=== PATIENT | female | born 1995 | race Hispanic/Latino ===

== ENCOUNTER 2019-09-22 08:08 | Emergency (ER) | payer OTHER, SELFPAY ==
--- NOTE | 2019-09-22 09:13 | ER ---
Nurse's Notes [facility] Name: Leora Morin Age: 24 yrs Sex: Female : 1995 Arrival Date: 09/22/2019 Time: 08:11 Bed 13 Private MD: Diagnosis: Acute pharyngitis Presentation: 09/21 08:15 Chief complaint: Patient states: sore throat and cough x 5 days ago. Pt denies SOB, aa5 denies fever. Pt states "my whole family has been tested for COVID and they are all negative". 08:15 Coronavirus screen: Patient reports a cough. Patient denies shortness of breath or aa5 difficulty breathing. Patient denies measured and/or subjective temperature greater than 100.4F prior to today's visit. Patient denies travel on a cruise ship or to a country the [facility] currently lists as an affected area. Patient denies contact with known and/or suspected case of COVID-19. Ebola Screen: Patient negative for fever greater than or equal to 101.5 degrees Fahrenheit, and additional compatible Ebola Virus Disease symptoms. Initial Sepsis Screen: Does the patient meet any 2 criteria? No. Patient's initial sepsis screen is negative. Does the patient have a suspected source of infection? No. Patient's initial sepsis screen is negative. Risk Assessment: Do you want to hurt yourself or someone else? Patient reports no desire to harm self or others. Onset of symptoms was August 2019. 08:15 Acuity: SIERRA 4 aa5 08:15 Method Of Arrival: Ambulatory aa5 CORRESPONDENT: 08:33 LMP N/A - control method aa5 Historical: - Allergies: 08:15 No Known Allergies; aa5 - PMHx: 08:15 Asthma; aa5 - PSHx: 08:15 ; aa5 - Immunization history:: Adult Immunizations unknown. - Social history:: Smoking status: Patient denies any tobacco usage or history of. Screenin:20 Abuse screen: Denies threats or abuse. Nutritional screening: No deficits noted. aa5 Tuberculosis screening: No symptoms or risk factors identified. Fall Risk None identified. Assessment: 08:15 General: Appears comfortable, Behavior is calm, cooperative. Pain: Complains of pain in aa5 throat. Neuro: Level of Consciousness is awake, alert, obeys commands, Oriented to person, place, time, situation. Cardiovascular: Heart tones S1 S2 present Rhythm is regular. Respiratory: Reports cough that is Airway is patent Respiratory effort is even, unlabored, Respiratory pattern is regular, symmetrical, Breath sounds are clear bilaterally. Denies shortness of breath. GI: Patient currently denies diarrhea, nausea, vomiting. : No signs and/or symptoms were reported regarding the genitourinary system. EENT: Throat is reddened with gag reflex present, Reports nasal congestion. Derm: Skin is pink, warm \\T\\ dry. Musculoskeletal: Range of motion: intact in all extremities. 09:07 Reassessment: Patient appears in no apparent distress at this time. Patient and/or hb family updated on plan of care and expected duration. Pain level reassessed. Patient is alert, oriented x 3, equal unlabored respirations, skin warm/dry/pink. Vital Signs: 08:15 BP 151 / 110; Pulse 90; Resp 18 S; Temp 98.4(O); Pulse Ox 100% on R/A; Weight 83.91 kg aa5 (R); Height 4 ft. 8 in. (142.24 cm) (R); Pain 5/10; 09:00 BP 137 / 87; Pulse 74; Resp 16; Pulse Ox 100% on R/A; hb 08:15 Body Mass Index 41.48 (83.91 kg, 142.24 cm) aa5 ED Course: 08:11 Patient arrived in ED. as 08:15 Arm band placed on Patient placed in an exam room, on a stretcher. aa5 08:15 Patient has correct armband on for positive identification. Bed in low position. Call aa5 light in reach. Side rails up X2. 08:19 Suresh Cartwirght NP is PHCP. pm1 08:19 Jose Bustos MD is Attending Physician. pm1 08:27 Flu and/or RSV swab sent to lab. Strep swab sent to lab. aa5 08:29 Rossy Melo, DOV is Primary Nurse. aa5 08:31 Triage completed. aa5 09:25 No provider procedures requiring assistance completed. Patient did not have IV access hb during this emergency room visit. Administered Medications: No medications were administered Outcome: 09:12 Discharge ordered by . pm1 09:25 Discharged to home ambulatory. hb 09:25 Condition: stable 09:25 Discharge instructions given to patient, Instructed on discharge instructions, follow up and referral plans. medication usage, Demonstrated understanding of instructions, follow-up care, medications, Prescriptions given X 1. 09:26 Patient left the ED. hb Signatures: Phyllis Thornton Audri, RN RN aa5 Suresh Cartwright, KARL STATISTICAL FINANCIAL ANALYST pm1 Lexy Walter RN RN hb Corrections: (The following items were deleted from the chart) 08:32 08:15 Chief complaint: Patient states: sore throat and cough x 5 days ago. Pt denies aa5 SOB, denies fever. aa5
--- NOTE | 2019-09-22 09:13 | EDPHYS ---
Physician Documentation [facility] Name: Leora Morin Age: 24 yrs Sex: Female : 1995 Arrival Date: 09/22/2019 Time: 08:11 Bed 13 Private MD: ED Physician Jose Bustos HPI: 09/21 08:49 This 24 yrs old Female presents to ER via Ambulatory with complaints of Sore pm1 Throat. 08:49 The patient presents with sore throat. The patient describes throat pain as raw, pm1 scratchy. 08:49 Onset: The symptoms/episode began/occurred 5 day(s) ago. Severity of symptoms: in the pm1 emergency department the symptoms are actually worse. Modifying factors: The symptoms are alleviated by nothing, the symptoms are aggravated by nothing, Denies contact with similarly ill indivduals. Associated signs and symptoms: Pertinent positives: cough, Pertinent negatives chest pain, diarrhea, fever, shortness of breath, vomiting. The patient has not recently seen a physician. Patient denies any exposure to covid and her family member that she lives with have tested multiple times and have been negative. 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 - Social history:: Smoking status: Patient denies any tobacco usage or history of. ROS: 08:55 Constitutional: Negative for fever, chills, and weight loss, Eyes: Negative for injury, pm1 pain, redness, and discharge. 08:55 Neck: Negative for injury, pain, and swelling, Cardiovascular: Negative for chest pain, palpitations, and edema. 08:55 Abdomen/GI: Negative for abdominal pain, nausea, vomiting, diarrhea, and constipation, Back: Negative for injury and pain, MS/Extremity: Negative for injury and deformity, Skin: Negative for injury, rash, and discoloration, Neuro: Negative for headache, weakness, numbness, tingling, and seizure. 08:55 ENT: Positive for sore throat, Negative for ear pain, difficulty swallowing, difficulty handling secretions, hoarseness. 08:55 Respiratory: Positive for cough, Negative for shortness of breath, sputum production, wheezing. Exam: 08:55 Constitutional: This is a well developed, well nourished patient who is awake, alert, pm1 and in no acute distress. Head/Face: Normocephalic, atraumatic. 08:55 Back: No spinal tenderness. No costovertebral tenderness. Full range of motion. Skin: Warm, dry with normal turgor. Normal color with no rashes, no lesions, and no evidence of cellulitis. MS/ Extremity: Pulses equal, no cyanosis. Neurovascular intact. Full, normal range of motion. 08:55 Cardiovascular: Exam negative for acute changes, Rate: normal, Rhythm: regular, Pulses: no pulse deficits are appreciated. 08:55 Respiratory: Exam negative for acute changes, respiratory distress, shortness of breath. 08:55 Neuro: Exam negative for acute changes, Orientation: is normal, Mentation: is normal, Motor: is normal, moves all fours. 08:55 Neck: Trachea midline, no thyromegaly or masses palpated, and no cervical pm1 lymphadenopathy. Supple, full range of motion without nuchal rigidity, or vertebral point tenderness. No Meningismus. 08:55 ENT: External ear(s): are unremarkable, Ear canal(s): are normal, TM's: are normal, Posterior pharynx: Tonsils: bilaterally enlarged, with erythema, no exudate, no ulcerations, peritonsillar mass, is not appreciated. Vital Signs: 08:15 BP 151 / 110; Pulse 90; Resp 18 S; Temp 98.4(O); Pulse Ox 100% on R/A; Weight 83.91 kg aa5 (R); Height 4 ft. 8 in. (142.24 cm) (R); Pain 5/10; 09:00 BP 137 / 87; Pulse 74; Resp 16; Pulse Ox 100% on R/A; hb 08:15 Body Mass Index 41.48 (83.91 kg, 142.24 cm) aa5 MDM: 08:20 Patient medically screened. pm1 08:52 Data reviewed: vital signs. Data interpreted: Pulse oximetry: on room air is 100 %. pm1 Interpretation: normal. 08:52 ED course: Patient offered covid test and she does not want it because the people that pm1 she lives with have tested for covid multiple times and are negative. 09:12 Counseling: I had a detailed discussion with the patient and/or guardian regarding: the pm1 historical points, exam findings, and any diagnostic results supporting the discharge/admit diagnosis, lab results, the need for outpatient follow up, to return to the emergency department if symptoms worsen or persist or if there are any questions or concerns that arise at home. 09/21 08:25 Order name: Strep; Complete Time: 09:11 pm1 09/21 08:25 Order name: Flu; Complete Time: 09:11 pm1 09/21 09:10 Order name: Throat Culture EDMN Administered Medications: No medications were administered Disposition: 09/22 05:29 Co-signature as Attending Physician, Jose Bustos MD I agree with the assessment and dheeraj plan of care. Disposition: 09/22/19 09:12 Discharged to Home. Impression: Acute pharyngitis. - Condition is Stable. - Discharge Instructions: Pharyngitis. - Prescriptions for Tessalon Perles 100 mg Oral Capsule - take 1 capsule by ORAL route every 8 hours As needed; 15 capsule. - Medication Reconciliation Form, Thank You Letter, Antibiotic Education, Prescription Opioid Use form. - Follow up: Emergency Department; When: As needed; Reason: Worsening of condition. Follow up: Private Physician; When: 2 - 3 days; Reason: Recheck today's complaints, Continuance of care, Re-evaluation by your physician. - Problem is new. - Symptoms have improved. Signatures: Dispatcher [employer] EDMS Jose Bustos MD MD cha Calderon, Audri, RN RN aa5 Suresh Cartwright NP WEDDING DESIGNER pm1 Lexy Walter RN RN hb Corrections: (The following items were deleted from the chart) 09/21 09: 09:12 09/22/2019 09:12 Discharged to Home. Impression: Acute pharyngitis. Condition is hb Stable. Forms are Medication Reconciliation Form, Thank You Letter, Antibiotic Education, Prescription Opioid Use. Follow up: Emergency Department; When: As needed; Reason: Worsening of condition. Follow up: Private Physician; When: 2 - 3 days; Reason: Recheck today's complaints, Continuance of care, Re-evaluation by your physician. Problem is new. Symptoms have improved. pm1
[2019-09-22 09:35] VITALS: TEMP 98.4; O2SAT 100
[2019-09-22 09:40] VITALS: BP 137/87
== END 2019-09-22 09:26 | disposition home or self-care (01) ==
LOC: ER 08:08
DX: J02.9 Acute pharyngitis, unspecified (principal)
CPT/HCPCS: 87070; 87081; 87804; 99283

== ENCOUNTER 2020-03-01 22:27 | Emergency (ER) | payer SELFPAY ==
--- OUTSIDE RECORDS SUMMARY | 2020-03-01 22:29 | XMS REPORT | Continuity of Care Document ---
:1995 Author Organization [facility] t Address [address] [place] [address] [place] [id number] Care Team Providers Name Role Phone Unavailable Unavailable Unavailable Problems This patient has no known problems. Allergies, Adverse Reactions, Alerts This patient has no known allergies or adverse reactions. Medications This patient has no known medications. Procedures This patient has no known procedures. Results This patient has no known results.
[2020-03-02 00:08] LABS: Absolute Lymphocytes (CBC) 2.4 K/uL (0.7-4.9); Basophils % 0.5 % (0-1.3); Hematocrit 40.1 % (36.0-45.0); Lymphocytes % 30.9 % (15.3-44.8); MPV 8.1 fL (7.6-11.3); RBC Red Blood Cell Count 4.54 M/uL (3.86-4.86)
[2020-03-02 00:10] LABS: Protime INR 1.03
[2020-03-02 00:26] LABS: ALT/SGPT 47 U/L (12-78); AST/SGOT 21 U/L (15-37); Albumin 4.1 g/dL (3.4-5.0); Alkaline Phosphatase 109 U/L (45-117); BUN Blood Urea Nitrogen 9 mg/dL (7-18); Bicarbonate 29 mmol/L (21-32); Bilirubin Direct < 0.1 mg/dL (0-0.2); Bilirubin Total 0.2 mg/dL (0.2-1.0); Glucose Level 103 mg/dL (74-106); Magnesium 2.6 mg/dL (1.8-2.4); Potassium 3.8 mmol/L (3.5-5.1); Protein, Total 8.4 g/dL (6.4-8.2); Sodium Level 139 mmol/L (136-145); Troponin (Emerg Dept Use Only) < 0.02 ng/mL (0.0-0.045)
[2020-03-02] MEDS ORDERED: KETOROLAC 30 MG/ML INJ ONE (00:28)
[2020-03-02 00:44] LABS: Barbiturates NEGATIVE (NEGATIVE); Benzodiazepines NEGATIVE (NEGATIVE); Cocaine NEGATIVE (NEGATIVE); METHAMPHETAM NEGATIVE (NEGATIVE); Methadone NEGATIVE (NEGATIVE); Opiates NEGATIVE (NEGATIVE); Phencyclidine NEGATIVE (NEGATIVE); THC Cannibis NEGATIVE (NEGATIVE)
--- NOTE | 2020-03-02 01:01 | EDPHYS ---
Physician Documentation [facility] Name: Leora Morin Age: 25 yrs Sex: Female : 1995 Arrival Date: 03/01/2020 Time: 22:29 Bed 5 Private MD: ED Physician Jonathon Meza HPI: 03/01 23:56 This 25 yrs old Female presents to ER via Ambulatory with complaints of Chest cp Pain. 23:56 The patient or guardian reports chest pain that is located primarily in the anterior cp chest wall, left. 23:56 The pain does not radiate. 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 - Social history:: Smoking status: Patient denies any tobacco usage or history of. ROS: 23:59 Constitutional: Negative for body aches, chills, fever, poor PO intake. cp 23:59 Cardiovascular: Positive for chest pain, Negative for edema, palpitations. cp Exam: 23:45 ECG was reviewed by the Attending Physician. cp 03/02 00:05 Constitutional: The patient appears in no acute distress, alert, awake, cp non-diaphoretic, non-toxic, well developed, well nourished, obese. 00:05 Head/Face: Normocephalic, atraumatic. cp 00:05 Eyes: Periorbital structures: appear normal, Conjunctiva: normal, no exudate, no injection, Sclera: no appreciated abnormality, Lids and lashes: appear normal, bilaterally. 00:05 ENT: External ear(s): are unremarkable, Nose: is normal, Mouth: Lips: moist, Oral mucosa: moist, Posterior pharynx: Airway: no evidence of obstruction, patent. 00:05 Chest/axilla: Inspection: normal, Palpation: crepitus, is not appreciated, tenderness, that is moderate, of the anterior aspect of left upper chest, that partially reproduces the patient's complaints. 00:05 Cardiovascular: Rate: normal, Rhythm: regular, Edema: is not appreciated, JVD: is not appreciated. 00:05 Respiratory: the patient does not display signs of respiratory distress, Respirations: normal, no use of accessory muscles, no retractions, labored breathing, is not present, Breath sounds: are clear throughout, no decreased breath sounds, no stridor, no wheezing. 00:05 Abdomen/GI: Inspection: abdomen appears normal, Palpation: abdomen is soft and non-tender, in all quadrants. 00:05 Neuro: Orientation: to person, place \T\ time. Mentation: is normal. Vital Signs: 03/01 23:02 BP 128 / 88; Pulse 91; Resp 18; Temp 98.3(O); Pulse Ox 100% on R/A; Weight 88.45 kg lp1 (R); Height 4 ft. 8 in. (142.24 cm); Pain 5/10; 03/02 01:00 BP 133 / 70; Pulse 85; Resp 19; Pulse Ox 99% ; Pain 5/10; rr5 01:25 BP 126 / 85; Pulse 90; Resp 17; Pulse Ox 99% ; rr5 03/01 23:02 Body Mass Index 43.72 (88.45 kg, 142.24 cm) lp1 MDM: 03/01 23:55 Patient medically screened. cp 03/02 00:00 Differential diagnosis: abnormal EKG, acute myocardial infarction, acute pericarditis, cp anxiety, chest wall pain, cholecystitis, Cholelithiasis costochondritis, esophagitis, pericarditis, pleurisy, pneumonia, pneumothorax, pulmonary embolus. 01:00 Data reviewed: vital signs, nurses notes, lab test result(s), EKG, radiologic studies, cp plain films. 01:00 Test interpretation: by ED physician or midlevel provider: ECG, chest xray negative for cp infiltrates. Counseling: I had a detailed discussion with the patient and/or guardian regarding: the historical points, exam findings, and any diagnostic results supporting the discharge/admit diagnosis, lab results, radiology results, the need for outpatient follow up, a family practitioner, to return to the emergency department if symptoms worsen or persist or if there are any questions or concerns that arise at home. Response to treatment: the patient's symptoms have mildly improved after treatment, and as a result, I will discharge patient. Special discussion: Based on the patient's history, exam, and Dx evaluation, there is no indication for emergent intervention or inpatient Tx. It is understood by the patient/guardian that if the Sx's persist or worsen they need to return immediately for re-evaluation. 03/01 23:48 Order name: Basic Metabolic Panel; Complete Time: 00:52 cp 03/01 23:48 Order name: CBC with Diff; Complete Time: 00:52 cp 03/02 00:52 Interpretation: Normal except: EOSINOPHIL % 7.7. cp 03/01 23:48 Order name: LFT's; Complete Time: 00:52 cp 03/02 00:52 Interpretation: Normal except: TP 8.4; GLOB 4.3; A/G 1.0. cp 03/01 23:48 Order name: Magnesium; Complete Time: 00:52 cp 03/01 23:48 Order name: PT-INR; Complete Time: 00:52 cp 03/01 23:48 Order name: Troponin (emerg Dept Use Only); Complete Time: 00:52 cp 03/02 00:55 Interpretation: Reviewed. cp 03/01 23:48 Order name: XRAY Chest (1 view) cp 03/01 23:48 Order name: EKG; Complete Time: 23:51 cp 03/01 23:48 Order name: Cardiac monitoring; Complete Time: 00:07 cp 03/01 23:48 Order name: UDS; Complete Time: 00:52 cp 03/02 00:55 Interpretation: Reviewed. cp 03/01 23:48 Order name: D-Dimer; Complete Time: 00:52 cp 03/02 00:14 Order name: Urine Dipstick--Ancillary (enter results) mw2 03/01 23:48 Order name: EKG - Nurse/Tech; Complete Time: 00:08 cp 03/01 23:48 Order name: IV Saline Lock; Complete Time: 00:08 cp 03/01 23:48 Order name: Labs collected and sent; Complete Time: 00:08 cp 03/01 23:48 Order name: O2 Per Protocol; Complete Time: 00:08 cp 03/01 23:48 Order name: O2 Sat Monitoring; Complete Time: 00:08 cp 03/01 23:48 Order name: Urine Dipstick-Ancillary (obtain specimen); Complete Time: 00:16 cp 03/01 23:48 Order name: Urine Test (obtain specimen); Complete Time: 00:16 cp EC/03 23:45 Rate is 89 beats/min. Rhythm is regular. NH interval is normal. QRS interval is normal. cp QT interval is normal. T waves are Inverted in lead aVR. Interpreted by me. Reviewed by me. Administered Medications: 03/02 00:07 Drug: TORadol - Ketorolac 15 mg Route: IVP; Site: left antecubital; mg2 01:00 Follow up: Response: No adverse reaction; Pain is decreased rr5 01:08 Drug: Ativan 0.5 mg Route: IVP; Site: left antecubital; rr5 01:25 Follow up: Response: No adverse reaction; Marked relief of symptoms rr5 Disposition: 01:30 Chart complete. cp 06:49 Co-signature as Attending Physician, Jonathon Meza MD I agree with the assessment and tw4 plan of care. Disposition: 03/02/20 01:00 Discharged to Home. Impression: Other chest pain. - Condition is Stable. - Discharge Instructions: Nonspecific Chest Pain. - Prescriptions for Diclofenac Sodium 75 mg Oral Tablet Sustained Release - take 1 tablet by ORAL route 2 times per day; 30 tablet. - Medication Reconciliation Form, Thank You Letter, Antibiotic Education, Prescription Opioid Use form. - Follow up: Private Physician; When: 2 - 3 days; Reason: Recheck today's complaints. - Problem is new. - Symptoms have improved. Signatures: Dispatcher [employer] EDMS Sravanthi Toure RN RN lp1 Jose Conte PA PA cp Wadley, Terrence, MD MD tw4 Perfecto Sullivan RN RN mg2 Naman Bray RN RN rr5 Corrections: (The following items were deleted from the chart) 01:28 01:00 03/02/2020 01:00 Discharged to Home. Impression: Other chest pain. Condition is rr5 Stable. Discharge Instructions: Nonspecific Chest Pain. Prescriptions for Diclofenac Sodium 75 mg Oral Tablet Sustained Release - take 1 tablet by ORAL route 2 times per day; 30 tablet. and Forms are Medication Reconciliation Form, Thank You Letter, Antibiotic Education, Prescription Opioid Use. Follow up: Private Physician; When: 2 - 3 days; Reason: Recheck today's complaints. Problem is new. Symptoms have improved. cp
--- NOTE | 2020-03-02 01:01 | ER ---
Nurse's Notes [facility] Name: Leora Morin Age: 25 yrs Sex: Female : 1995 Arrival Date: 03/01/2020 Time: 22:29 Bed 5 Private MD: Diagnosis: Other chest pain Presentation: 03/01 22:59 Chief complaint: Patient states: chest pain for "a couple months" with shortness of lp1 breath; states "I just couldn't take it anymore";. Coronavirus screen: Client denies travel out of the [place] in the last 14 days. shortness of breath, Client presents with at least one sign or symptom that may indicate coronavirus-19. Standard/surgical mask placed on the client. Ebola Screen: No symptoms or risks identified at this time. Risk Assessment: Do you want to hurt yourself or someone else? Patient reports no desire to harm self or others. Onset of symptoms was March 01, 2020. 22:59 Method Of Arrival: Ambulatory lp1 22:59 Acuity: SIERRA 3 lp1 23:02 Initial Sepsis Screen: Does the patient meet any 2 criteria? No. Patient's initial lp1 sepsis screen is negative. Does the patient have a suspected source of infection? No. Patient's initial sepsis screen is negative. Triage Assessment: 23:40 General: Appears in no apparent distress. uncomfortable, Behavior is calm, cooperative, rr5 appropriate for age. 23:40 Pain: Complains of pain in anterior aspect of left upper chest. 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 - Social history:: Smoking status: Patient denies any tobacco usage or history of. Screenin:06 Abuse screen: Denies threats or abuse. Denies injuries from another. Nutritional lp1 screening: No deficits noted. Tuberculosis screening: No symptoms or risk factors identified. Fall Risk None identified. Assessment: 23:40 General: Appears in no apparent distress. uncomfortable, Behavior is calm, cooperative, rr5 appropriate for age. 23:40 Pain: Complains of pain in chest and anterior aspect of left upper chest Pain does not rr5 radiate. Pain currently is 8 out of 10 on a pain scale. Quality of pain is described as aching, Pain began gradually, Is intermittent. Neuro: Level of Consciousness is awake, alert, obeys commands, Oriented to person, place, time, situation. Cardiovascular: Reports chest pain, Capillary refill < 3 seconds Patient's skin is warm and dry. Respiratory: Airway is patent Respiratory effort is even, unlabored, Respiratory pattern is regular, symmetrical. GI: No signs and/or symptoms were reported involving the gastrointestinal system. : No signs and/or symptoms were reported regarding the genitourinary system. EENT: No signs and/or symptoms were reported regarding the EENT system. Derm: Skin is intact, is healthy with good turgor, Skin temperature is warm. Musculoskeletal: Circulation, motion, and sensation intact. Capillary refill < 3 seconds. 03/02 01:06 Reassessment: Patient appears in no apparent distress at this time. Patient is alert, rr5 oriented x 3, equal unlabored respirations, skin warm/dry/pink. for discharge with additional order made Patient states symptoms have improved. 01:25 Reassessment: Patient appears in no apparent distress at this time. Patient is alert, rr5 oriented x 3, equal unlabored respirations, skin warm/dry/pink. discharge instruction given and explained without complaints made Patient states feeling better. Patient states symptoms have improved. Vital Signs: 03/01 23:02 BP 128 / 88; Pulse 91; Resp 18; Temp 98.3(O); Pulse Ox 100% on R/A; Weight 88.45 kg lp1 (R); Height 4 ft. 8 in. (142.24 cm); Pain 5/10; 03/02 01:00 BP 133 / 70; Pulse 85; Resp 19; Pulse Ox 99% ; Pain 5/10; rr5 01:25 BP 126 / 85; Pulse 90; Resp 17; Pulse Ox 99% ; rr5 03/01 23:02 Body Mass Index 43.72 (88.45 kg, 142.24 cm) lp1 ED Course: 03/01 22:29 Patient arrived in ED. ag3 23:01 Triage completed. lp1 23:01 Arm band placed on right wrist. lp1 23:33 Perfecto Sullivan, RN is Primary Nurse. mg2 23:40 Patient has correct armband on for positive identification. Placed in gown. Bed in low rr5 position. Call light in reach. alarm security or surveillance monitor on. Pulse ox on. NIBP on. 23:40 No provider procedures requiring assistance completed. rr5 23:40 Inserted saline lock: 20 gauge in left antecubital area, using aseptic technique. Blood rr5 collected. Patient maintains SpO2 saturation greater than 95% on room air. 23:41 Jose Conte PA is PHCP. cp 23:41 Jonathon Meza MD is Attending Physician. cp 03/02 00:16 XRAY Chest (1 view) In Process Unspecified. EDMS 01:25 IV discontinued, intact, bleeding controlled, No redness/swelling at site. Pressure rr5 dressing applied. Administered Medications: 00:07 Drug: TORadol - Ketorolac 15 mg Route: IVP; Site: left antecubital; mg2 01:00 Follow up: Response: No adverse reaction; Pain is decreased rr5 01:08 Drug: Ativan 0.5 mg Route: IVP; Site: left antecubital; rr5 01:25 Follow up: Response: No adverse reaction; Marked relief of symptoms rr5 Outcome: 01:00 Discharge ordered by MD. cp 01:25 Discharged to home ambulatory. rr5 01:25 Condition: stable 01:25 Discharge instructions given to patient, Instructed on discharge instructions, follow up and referral plans. medication usage, Demonstrated understanding of instructions, follow-up care, medications, Prescriptions given X 1. 01:28 Patient left the ED. rr5 Signatures: Dispatcher [employer] EDMS Sravanthi Toure RN RN lp1 Jose Conte PA PA cp Perfecto Sullivan, RN RN mg2 Justine Lee 3 Naman Bray, RN RN rr5
[2020-03-02] MEDS ORDERED: LORazepam 2 MG/ML VIAL ONE (01:25)
[2020-03-02 01:39] VITALS: BP 128/88; TEMP 98.3; O2SAT 100
[2020-03-02 06:12] LABS: Urine Blood NEGATIVE (NEG); Urine Glucose NEGATIVE (NEG); Urine Protein TRACE (NEG); Urine Specific Gravity >1.030 (1.005-1.030)
--- NOTE | 2020-03-02 08:30 | RAD REPORT ---
EXAM DESCRIPTION: RAD - Chest Single View - 03/02/2020 12:16 am CLINICAL HISTORY: CHEST PAIN Chest pain. COMPARISON: No comparisons FINDINGS: Portable technique limits examination quality. The lungs are grossly clear. The heart is normal in size. No displaced fractures. IMPRESSION: No acute intrathoracic process suspected.
--- NOTE | 2020-03-02 10:29 | EKG ---
Test Date: 2020-03-01 Test Time: 23:40:17 Finish Cleaner: RR MEASUREMENT RESULTS: Intervals: Rate: 89 FL: 152 QRSD: 82 QT: 354 QTc: 430 [place]: P: 38 FL: 152 QRS: 52 T: 20 INTERPRETIVE STATEMENTS: Normal sinus rhythm Normal ECG No previous ECG available for comparison Electronically Signed On 03-02-20 10:27:46 HYDRAULIC ENGINEER by Luis Enrique Escobar
== END 2020-03-02 01:28 | disposition home or self-care (01) ==
LOC: ER 22:27
DX: R07.89 Other chest pain (principal); F41.8 Other specified anxiety disorders
CPT/HCPCS: 36415; 71045; 80048; 80076; 80307; 81003; 83735; 84484; 85025; 85379; 85610; 93005; 96374; 96375; 99285

== ENCOUNTER 2021-11-24 10:38 | Emergency (ER) | payer SELFPAY ==
--- OUTSIDE RECORDS SUMMARY | 2021-11-24 10:49 | XMS REPORT | Continuity of Care Document ---
:1995 Author Organization [facility] t Address [address] [place] [address] Care Team Providers Name Role Phone MIKE MCCLOUD Attending Clinician Unavailable Payers Payer Name Policy Type Policy Number Effective Date Expiration Date Rell smalls [facility] [id number] 2017 00:00:00 Problems This patient has no known problems. Allergies, Adverse Reactions, Alerts Allergy Allergy Status Severity Reaction(s) Onset Inactive Treating Comm ents Source Name Type Date Date Clinician NO KNOWN Drug Active [facility] ALLERGIE Class [facility] Medications This patient has no known medications. Procedures This patient has no known procedures. Encounters Start End Encounter Admission Attending Care Care Encounter Source Date/Time Date/Time Type Type Clinicians Facility Department ID 2020-10-26 2020-10-26 Outpatient [facility] [id number] [facility] 10:00:00 10:00:00 [id number] [facility] 2020-10-26 2020-10-26 Outpatient R [facility] [id number] [facility] 10:00:00 10:00:00 MIKE [facility] Results This patient has no known results.
[2021-11-24 10:56] LABS: Urine Blood Negative (Negative); Urine Glucose Negative (Negative); Urine Protein Negative (Negative); Urine Specific Gravity >=1.030 (1.005-1.030); Urine pH 5.5 (5.0-7.0)
[2021-11-24] MEDS ORDERED: NA CHLORIDE 0.9% 1,000 ML ONE (11:06)
[2021-11-24] MEDS ORDERED: MORPHINE 2 MG/ML SYR ONE (11:06)
[2021-11-24] MEDS ORDERED: ONDANSETRON 4 MG/2 ML VIAL ONE (11:06)
[2021-11-24] MEDS ORDERED: FAMOTIDINE 20 MG/2 ML VIAL IV ONE (11:06)
[2021-11-24 11:18] LABS: Absolute Lymphocytes (CBC) 1.6 K/uL (0.7-4.9); Hematocrit 39.8 % (36.0-45.0); Lymphocytes % 19.8 % (15.3-44.8); MCV 87.3 fL (80-100); MPV 7.6 fL (7.6-11.3); RBC Red Blood Cell Count 4.57 M/uL (3.86-4.86)
[2021-11-24 12:15] LABS: Bilirubin Total 0.4 mg/dL (0.2-1.0); Protein, Total 7.9 g/dL (6.4-8.2)
--- NOTE | 2021-11-24 13:03 | RAD REPORT ---
EXAM DESCRIPTION: CT - Abdomen Pelvis W Contrast - 11/24/2021 12:46 pm CLINICAL HISTORY: Abdominal pain COMPARISON: none. TECHNIQUE: Computed axial tomography of the abdomen pelvis was obtained. 100 cc Isovue-300 was admin istered intravenously. Oral contrast was not requested which limits evaluation of bowel and appendix All CT scans are performed using dose optimization technique as appropriate and may include automated exposure control or mA/KV adjustment according to patient size. FINDINGS: Mild fatty liver The Spleen, pancreas, adrenal and left kidney appear unremarkable. Small right renal cyst There is no evidence of diverticulitis. Normal appendix Small umbilical hernia No adnexal mass IMPRESSION: No acute abnormality is displayed.
--- NOTE | 2021-11-24 13:33 | EDPHYS ---
Physician Documentation [facility] Name: Leora Morin Age: 26 yrs Sex: Female : 1995 Arrival Date: 11/24/2021 Time: 10:40 Bed 4 Private MD: ED Physician Brad Rabago HPI: 11/24 11:20 This 26 yrs old Female presents to ER via Ambulatory with complaints of jl9 epigastric pain as of this morning.. 11:20 The patient presents with abdominal pain in the epigastric area. Onset: The jl9 symptoms/episode began/occurred acutely. The symptoms do not radiate. Associated signs and symptoms: Pertinent positives: nausea and vomiting. The symptoms are described as crampy. Modifying factors: The symptoms are alleviated by nothing, the symptoms are aggravated by nothing. Severity of pain: in the emergency department the pain is a 5 / 10. The patient has not experienced similar symptoms in the past. Historical: - Allergies: 11:03 No Known Allergies; iw - Home Meds: 11:03 None [Active]; iw - PMHx: 11:03 Anxiety; Asthma; Depression; iw - PSHx: 11:03 section; iw - Immunization history:: Client reports having NOT received the Covid vaccine. - Social history:: Smoking status: Patient denies any tobacco usage or history of. ROS: 11:22 Constitutional: Negative for fever, chills, and weight loss, Eyes: Negative for injury, jl9 pain, redness, and discharge, ENT: Negative for injury, pain, and discharge, Neck: Negative for injury, pain, and swelling, Cardiovascular: Negative for chest pain, palpitations, and edema, Respiratory: Negative for shortness of breath, cough, wheezing, and pleuritic chest pain. 11:22 Back: Negative for injury and pain, : Negative for injury, bleeding, discharge, and swelling, MS/Extremity: Negative for injury and deformity, Skin: Negative for injury, rash, and discoloration, Neuro: Negative for headache, weakness, numbness, tingling, and seizure, Psych: Negative for depression, anxiety, suicide ideation, homicidal ideation, and hallucinations, Allergy/Immunology: Negative for hives, rash, and allergies, Endocrine: Negative for neck swelling, polydipsia, polyuria, polyphagia, and marked weight changes, Hematologic/Lymphatic: Negative for swollen nodes, abnormal bleeding, and unusual bruising. 11:22 Abdomen/GI: Positive for abdominal pain, nausea, vomiting, diarrhea. Exam: 11:22 Constitutional: This is a well developed, well nourished patient who is awake, alert, jl9 and in no acute distress. Head/Face: Normocephalic, atraumatic. Eyes: Pupils equal round and reactive to light, extra-ocular motions intact. Lids and lashes normal. Conjunctiva and sclera are non-icteric and not injected. Cornea within normal limits. Periorbital areas with no swelling, redness, or edema. ENT: Mucous membranes moist. Neck: Trachea midline, no thyromegaly or masses palpated, and no cervical lymphadenopathy. Supple, full range of motion without nuchal rigidity, or vertebral point tenderness. No Meningismus. Chest/axilla: Normal chest wall appearance and motion. Nontender with no deformity. No lesions are appreciated. Cardiovascular: Regular rate and rhythm with a normal S1 and S2. No gallops, murmurs, or rubs. Normal PMI, no JVD. No pulse deficits. Respiratory: Lungs have equal breath sounds bilaterally, clear to auscultation and percussion. No rales, rhonchi or wheezes noted. No increased work of breathing, no retractions or nasal flaring. 11:22 Back: No spinal tenderness. No costovertebral tenderness. Full range of motion. Pelvic Exam: Normal external genitalia. Speculum exam with closed cervical os, no discharge or bleeding noted. Bimanual exam with normal adnexa, no adnexal or cervical motion tenderness. Normal uterus. Skin: Warm, dry with normal turgor. Normal color with no rashes, no lesions, and no evidence of cellulitis. MS/ Extremity: Pulses equal, no cyanosis. Neurovascular intact. Full, normal range of motion. Neuro: Awake and alert, GCS 15, oriented to person, place, time, and situation. Cranial nerves II-XII grossly intact. Motor strength 5/5 in all extremities. Sensory grossly intact. Cerebellar exam normal. Normal gait. Psych: Awake, alert, with orientation to person, place and time. Behavior, mood, and affect are within normal limits. 11:22 Abdomen/GI: Inspection: abdomen appears normal, Bowel sounds: normal, Palpation: mild abdominal tenderness, in all quadrants, Rectal exam: Vital Signs: 11:02 Resp 16 S; Pulse Ox 98% on R/A; Weight 88.45 kg; Height 4 ft. 10 in. (147.32 cm); iw 13:00 BP 118 / 64; Pulse 84; Resp 17; Temp 98.6; Pulse Ox 100% ; Pain 4/10; jh6 11:02 Body Mass Index 40.75 (88.45 kg, 147.32 cm) iw MDM: 10:40 Patient medically screened. [facility] emergency room 11:22 Data reviewed: vital signs, nurses notes. 9 13:32 Counseling: I had a detailed discussion with the patient and/or guardian regarding: the [facility] emergency room historical points, exam findings, and any diagnostic results supporting the discharge/admit diagnosis, lab results, radiology results, the need for outpatient follow up, to return to the emergency department if symptoms worsen or persist or if there are any questions or concerns that arise at home. Response to treatment: the patient's symptoms have markedly improved after treatment. 11/24 10:50 Order name: CBC with Diff; Complete Time: 12:[address] [facility] emergency room 11/24 10:50 Order name: CMP; Complete Time: 12:[address] [facility] emergency room 11/24 10:50 Order name: Lipase; Complete Time: 12:[address] [facility] emergency room 11/24 10:50 Order name: CT Abd/Pelvis - IV Contrast Only; Complete Time: 13:22 11/24 10:56 Order name: Urine Dipstick-Ancillary; Complete Time: 12:13 [facility] 11/24 10:50 Order name: IV Saline Lock; Complete Time: 11:12 11/24 10:50 Order name: Labs collected and sent; Complete Time: 11:12 11/24 10:50 Order name: Urine Dipstick-Ancillary (obtain specimen); Complete Time: 11:12 11/24 10:50 Order name: Urine Test (obtain specimen); Complete Time: 11:12 11/24 11:27 Order name: Labs - recollect needed: recollect green top; Complete Time: 11:35 bd Administered Medications: 11:11 Drug: morphine 2 mg Route: IVP; Infused Over: 4 mins; Site: right antecubital; [facility] 14:00 Follow up: Response: No adverse reaction; Marked relief of symptoms iw 11:12 Drug: NS 0.9% 1000 ml Route: IV; Rate: 1 bolus; Site: right antecubital; 6 12:15 Follow up: IV Status: Completed infusion iw 11:12 Drug: Pepcid (famotidine) 20 mg Route: IVP; Site: right antecubital; 6 13:00 Follow up: Response: No adverse reaction iw 11:12 Drug: Zofran (Ondansetron) 4 mg Route: IVP; Site: right antecubital; [facility] 11:40 Follow up: Response: No adverse reaction Disposition: 17:30 Co-signature as Attending Physician, Brad Rabago MD. rn Disposition Summary: 11/24/21 13:32 Discharge Ordered Location: Home 9 Condition: Stable jl9 Diagnosis - Abdominal pain, unspecified jl9 Followup: jl9 - With: Private Physician - When: 1 - 2 days - Reason: Recheck today's complaints, Continuance of care, Re-evaluation by your physician Discharge Instructions: - Discharge Summary Sheet jl9 - Abdominal Pain, Adult jl9 Forms: - Medication Reconciliation Form jl9 - Thank You Letter jl9 - Antibiotic Education jl9 - Prescription Opioid Use jl9 Prescriptions: - ondansetron 8 mg Oral tablet,disintegrating - take 1 tablet by ORAL route every 8 hours As needed; 15 tablet; Refills: 0, jl9 Product Selection Permitted Signatures: Dispatcher [employer] Lalita Muir Irene, RN Brad Moya MD MD rn Hastedt, Jennifer, RN RN [facility] Jed Crowe [facility] emergency [facility]
--- NOTE | 2021-11-24 13:33 | ER ---
Nurse's Notes [facility] Name: Leora Morin Age: 26 yrs Sex: Female : 1995 Arrival Date: 11/24/2021 Time: 10:40 Bed 4 Private MD: Diagnosis: Abdominal pain, unspecified Presentation: 11/24 11:02 Chief complaint: Patient states: abd pain , nausea , diarrhea today. Coronavirus iw screen: Client presents with at least one sign or symptom that may indicate coronavirus-19. Ebola Screen: Patient negative for fever greater than or equal to 101.5 degrees Fahrenheit, and additional compatible Ebola Virus Disease symptoms Patient denies exposure to infectious person. Patient denies travel to an Ebola-affected area in the 21 days before illness onset. No symptoms or risks identified at this time. Initial Sepsis Screen: Does the patient meet any 2 criteria? No. Patient's initial sepsis screen is negative. Does the patient have a suspected source of infection? No. Patient's initial sepsis screen is negative. Risk Assessment: Do you want to hurt yourself or someone else? Patient reports no desire to harm self or others. Onset of symptoms was November 24, 2021. 11:02 Method Of Arrival: Ambulatory iw 11:02 Acuity: SIERRA 3 iw Historical: - Allergies: 11:03 No Known Allergies; iw - Home Meds: 11:03 None [Active]; iw - PMHx: 11:03 Anxiety; Asthma; Depression; iw - PSHx: 11:03 section; iw - Immunization history:: Client reports having NOT received the Covid vaccine. - Social history:: Smoking status: Patient denies any tobacco usage or history of. Screenin:04 Abuse screen: Denies threats or abuse. Nutritional screening: No deficits noted. jh6 Tuberculosis screening: No symptoms or risk factors identified. Fall Risk IV access (20 points). Assessment: 11:00 General: Appears uncomfortable, Behavior is calm, cooperative. jh6 11:00 Pain: Complains of pain in right upper quadrant and left upper quadrant. GI: Bowel jh6 sounds present X 4 quads. Abdomen is tender to palpation in epigastric area. 11:33 Reassessment: Patient is alert, oriented x 3, equal unlabored respirations, skin jh6 warm/dry/pink. states still slightly nauseated but pain is better Patient denies pain at this time. Pain: Denies pain. 14:05 Reassessment: Patient appears in no apparent distress at this time. Patient and/or iw family updated on plan of care and expected duration. Pain level reassessed. Patient is alert, oriented x 3, equal unlabored respirations, skin warm/dry/pink. Patient states feeling better. Patient states symptoms have improved. Vital Signs: 11:02 Resp 16 S; Pulse Ox 98% on R/A; Weight 88.45 kg; Height 4 ft. 10 in. (147.32 cm); iw 13:00 BP 118 / 64; Pulse 84; Resp 17; Temp 98.6; Pulse Ox 100% ; Pain 4/10; jh6 11:02 Body Mass Index 40.75 (88.45 kg, 147.32 cm) iw ED Course: 10:40 Patient arrived in ED. mr 10:40 Jed Crowe is PHCP. jl9 10:40 Brad Rabago MD is Attending Physician. jl9 10:44 Massiel Gudino, DOV is Primary Nurse. jh6 11:00 Placed in gown. Bed in low position. Call light in reach. Side rails up X 1. Adult w/ jh6 patient. 11:03 Triage completed. iw 11:03 Arm band placed on. iw 11:04 Inserted saline lock: 20 gauge in left antecubital area, using aseptic technique. Blood jh6 collected. 12:48 CT Abd/Pelvis - IV Contrast Only In Process Unspecified. EDMS 14:05 No provider procedures requiring assistance completed. IV discontinued, intact, iw bleeding controlled, No redness/swelling at site. Pressure dressing applied. Administered Medications: 11:11 Drug: morphine 2 mg Route: IVP; Infused Over: 4 mins; Site: right antecubital; jh6 14:00 Follow up: Response: No adverse reaction; Marked relief of symptoms iw 11:12 Drug: NS 0.9% 1000 ml Route: IV; Rate: 1 bolus; Site: right antecubital; jh6 12:15 Follow up: IV Status: Completed infusion iw 11:12 Drug: Pepcid (famotidine) 20 mg Route: IVP; Site: right antecubital; jh6 13:00 Follow up: Response: No adverse reaction iw 11:12 Drug: Zofran (Ondansetron) 4 mg Route: IVP; Site: right antecubital; [facility] 11:40 Follow up: Response: No adverse reaction Medication: 11:35 VIS not applicable for this client. [facility] Outcome: 13:32 Discharge ordered by MD. [email or web address] 14:05 Discharged to home ambulatory, with family. iw 14:05 Condition: good 14:05 Discharge instructions given to patient, family, Instructed on discharge instructions, follow up and referral plans. medication usage, Demonstrated understanding of instructions, follow-up care, medications, Prescriptions given X 1. 14:07 Patient left the ED. Signatures: Dispatcher [employer] EDID Sandra Mendes Irene, RN RN Massiel Gudino RN RN [facility] Jed Crowe9
[2021-11-26 07:42] VITALS: BP 118/64; TEMP 98.6; O2SAT 100
== END 2021-11-24 14:07 | disposition home or self-care (01) ==
LOC: ER 10:38
DX: R10.13 Epigastric pain (principal); R11.2 Nausea with vomiting, unspecified
CPT/HCPCS: 36415; 74177; 80053; 81003; 83690; 85025; 96361; 96374; 96375; 99284; J2270; J2405; J7030; Q9967

== ENCOUNTER 2023-06-29 07:59 | Emergency (ER) | payer BC ==
--- OUTSIDE RECORDS SUMMARY | 2023-06-29 08:02 | XMS REPORT | Continuity of Care Document ---
Author Name Unknown Address [address] [place] [address] Organization [facility] thconnect Address [address] [place] [address] Care Team Providers Care Vascular Neurologist Name Role Phone Laury Maravilla Primary Care Physician Un available JENY WHITE Attending Clinician Unavail able Doctor Unassigned, [place] Attending Clinician U MIKE Alcaraz Attending Clinician Unavailable Payers Payer Name Policy Type Policy Number Effective Date Expirati on Date Source Problems Condition Name Condition Details Condition Category Status Onset Date Resolution Date Last Treatment Date Treating Clinician Comments Source Encounter for contracept beverly management , unspecifie d type Encounter for contracept beverly management , unspecifie d type Disease Active 08-15 00:00: 00 [facility] BMI 40.0-44.9, adult BMI 40.0-44.9, adult Disease Active 08-15 00:00: 00 [facility] GDM, class A1 GDM, class A1 Disease Active 06-28 00:00: 00 [facility] Morbid obesity Morbid obesity Disease Active 04-28 00:00: 00 [facility] Screen for STD (sexually transmitte d disease) Screen for STD (sexually transmitte d disease) Disease Active 03-16 00:00: 00 [facility] History of gestationa l diabetes mellitus History of gestationa l diabetes mellitus Disease Active 0 18 00:00: 00 [facility] Allergies, Adverse Reactions, Alerts Allergy Name Allergy Type Status Severity Reaction(s) Onset Date Inactive Date Treating Clinician Comments Source NO KNOWN ALLERGIE S Drug Class Active [facility] Social History Social Habit Start Date Stop Date Quantity Comments Source [facility] function 2018-09-06 00:00:00 2018-09-06 00:00:00 [facility] Alcohol intake 2018-08-15 00:00:00 2018-08-15 00:00:00 0 /d [facility] Tobacco use and exposure 2014-04-30 00:00:00 2014-04-30 00:00:00 Smokeless tobacco non-user [facility] Sex Assigned At 1995 00:00:00 1995 00:00:00 [facility] Smoking Status Start Date Stop Date Source Never smoked tobacco [facility] Immunizations Ordered Immunization Name Filled Immunization Name Date Status Comments Source TD, NOS Unknown Completed [facility] HPV Unknown Completed [facility] HPV Unknown Completed [facility] Varicella (varivax)(chicken pox) Unknown Completed [facility] Influenza Virus Vaccine Quad IM 3+ YRS Unknown Completed [facility] Influenza Virus Vaccine Quad .5 mL IM 6+ MO (FLUZONE/FLULAVAL/FL UARIX) Unknown Completed [facility] Influenza Virus Vaccine Quad .5 mL IM 6+ MO (FLUZONE/FLULAVAL/FL UARIX) Unknown Completed [facility] TDAP Unknown Completed [facility] Encounters Start Date/Time End Date/Time Encounter Type Admission Type Attending Clinicians Care Facility Care Department Encounter ID Source 2021-03-19 00:00:00 2021-03-19 00:00:00 Patient Secure Msg Doctor Unassigned, [place] [facility] [id number] [facility] 2020-10-26 10:00:00 2020-10-26 10:00:00 Outpatient R [facility] [id number] [facility] 2020-10-26 10:00:00 2020-10-26 10:00:00 Outpatient MIKE CAR [facility] [id number] [facility]
[2023-06-29 08:35] LABS: Absolute Eosinophils 0.2 K/uL (0-0.5); Absolute Lymphocytes (CBC) 1.1 K/uL (0.7-4.9); Absolute Monocytes 0.4 K/uL (0.1-1.3); Absolute Neutrophil 3.8 K/uL (1.8-8.0); Basophils % 0.4 % (0-1.3); Eosinophils % 4.4 % (0-4.4); Hematocrit 38.4 % (36.0-45.0); MCH 29.8 pg (27.0-35.0); MCHC 33.9 g/dL (32.0-36.0); MCV 87.9 fL (80-100); MPV 7.2 fL (7.6-11.3); Neutrophils % 68.2 % (41.7-73.7); Nucleated RBC Absolute Count 0.1 (0-0); Nucleated Red Blood Cells % 0.9 % (0-0); Platelets 315 thou/uL (152-406); RBC Red Blood Cell Count 4.36 M/uL (3.86-4.86); Red Cell Distribution Width 13.5 % (12.1-15.2)
[2023-06-29 08:43] LABS: Specific Gravity 1.022 (1.005-1.030)
[2023-06-29] MEDS ORDERED: ONDANSETRON 4 MG/2 ML VIAL ONE (08:45)
[2023-06-29] MEDS ORDERED: LIDOCAINE VISCOUS 2% 10ML ORAL SOLN ONE (08:45)
[2023-06-29] MEDS ORDERED: MAGNES/ALUMIN/SIMET 30ML UCUP ONE (08:45)
[2023-06-29 08:49] LABS: Albumin 3.7 g/dL (3.4-5.0); Albumin/Globulin Ratio 0.9 (1.1-1.8); Anion Gap 8.5 mEq/L (5.0-15.0); Bilirubin Total 0.7 mg/dL (0.2-1.0); Potassium 3.5 mEq/L (3.5-5.1); Protein, Total 7.7 g/dL (6.4-8.2)
[2023-06-29 09:05] LABS: Specific Gravity 1.022 (1.005-1.030); Sqamous Epithelial 20-50 /HPF (None Seen); Urine Bacteria 20-50 /HPF (<20); Urine Bilirubin NEGATIVE (Negative); Urine Blood 2+ (Negative); Urine Clarity Extremely Turbid (Clear); Urine Color Light-Yellow (Yellow); Urine Culture Reflex Order NOT NEEDED; Urine Glucose NEGATIVE (Negative); Urine Ketones NEGATIVE (Negative); Urine Microscopic Reflex YN ORDER UMIC; Urine Mucus Slight /HPF (None Seen); Urine Nitrite NEGATIVE (Negative); Urine Protein TRACE (Negative); Urine RBC <5 /HPF (None Seen); Urine Urobilinogen Normal (Normal); Urine WBC None Seen /HPF (<5); Urine pH 5.5 (5.0-7.0)
--- NOTE | 2023-06-29 09:15 | RAD REPORT ---
EXAM DESCRIPTION: US - Abdomen Exam Limited - 06/29/2023 8:47 am CLINICAL HISTORY: ABD PAIN COMPARISON: <Comparisons> FINDINGS: The gallbladder demonstrates no gallstones. No pericholecystic fluid or gallbladder wall t hickening. The common bile duct is normal measuring 4 mm. The liver demonstrates no findings of intrahepatic biliary dilatation. IMPRESSION: Unremarkable examination.
--- NOTE | 2023-06-29 09:22 | RAD REPORT ---
EXAM DESCRIPTION: CTAbdomen Pelvis W Contrast - 06/29/2023 9:14 am CLINICAL HISTORY: Abdominal pain. ABD PAIN COMPARISON: <Comparisons> TECHNIQUE: Biphasic CT imaging of the abdomen and pelvis was performed with 100 ml non-ionic IV cont rast. All CT scans are performed using dose optimization technique as appropriate and may include automated exposure control or mA/KV adjustment according to patient size. FINDINGS: The lung bases are clear. The liver demonstrates mild fatty infiltration. Spleen, pancreas, adrenal glands and kidneys are with in normal limits. Small benign right renal cyst. The gallbladder is mildly distended. No bowel obstruction, free air, free fluid or abscess. The appendix is normal. No evidence of signi ficant lymphadenopathy. 3.2 cm left ovarian follicle. No suspicious bony findings. IMPRESSION: No acute intra-abdominal or pelvic finding. Mild fatty liver.
--- NOTE | 2023-06-29 09:41 | ER ---
Nurse's Notes [facility] Name: Leora Morin Age: 28 yrs Sex: Female : 1995 Arrival Date: 06/29/2023 Time: 07:59 Bed 5 Private MD: Diagnosis: Upper abdominal pain, unspecified Presentation: 06/28 08:14 Chief complaint: Patient states: nausea x1 week with upper abdominal pain that started kc6 this AM. Coronavirus screen: At this time, the client does not indicate any symptoms associated with coronavirus-19. Ebola Screen: No symptoms or risks identified at this time. Initial Sepsis Screen: Does the patient meet any 2 criteria? No. Patient's initial sepsis screen is negative. Does the patient have a suspected source of infection? No. Patient's initial sepsis screen is negative. Risk Assessment: Do you want to hurt yourself or someone else? Patient reports no desire to harm self or others. Onset of symptoms was June 29, 2023. 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 - Infectious Disease History:: Denies. - Social history:: Smoking status: Patient denies any tobacco usage or history of. - Family history:: not pertinent. - Hospitalizations: : No recent hospitalization is reported. Screenin:16 [facility] ED Fall Risk Assessment (Adult) History of falling in the last 3 months, kc6 including since admission No falls in past 3 months (0 pts) Confusion or Disorientation No (0 pts) Intoxicated or Sedated No (0 pts) Impaired Gait No (0 pts) Mobility Assist Device Used No (0 pt) Altered Elimination No (0 pt) Score/Fall Risk Level 0 - 2 = Low Risk. Abuse screen: Denies threats or abuse. Denies injuries from another. Nutritional screening: No deficits noted. Tuberculosis screening: No symptoms or risk factors identified. Assessment: 08:37 Reassessment: Patient appears in no apparent distress at this time. Patient and/or db family updated on plan of care and expected duration. Pain level reassessed. Patient is alert, oriented x 3, equal unlabored respirations, skin warm/dry/pink. General: Appears in no apparent distress. comfortable, Behavior is calm, cooperative. Pain: Complains of pain in abdomen. Neuro: Level of Consciousness is awake, alert, obeys commands, Oriented to person, place, time, situation. Respiratory: Airway is patent Respiratory effort is even, unlabored, Respiratory pattern is regular, symmetrical. GI: Abdomen is non-distended, Reports nausea. 09:33 Reassessment: Patient appears in no apparent distress at this time. No changes from [place] previously documented assessment. Patient and/or family updated on plan of care and expected duration. Pain level reassessed. Patient is alert, oriented x 3, equal unlabored respirations, skin warm/dry/pink. 10:00 Reassessment: Patient appears in no apparent distress at this time. Patient and/or db family updated on plan of care and expected duration. Pain level reassessed. Patient is alert, oriented x 3, equal unlabored respirations, skin warm/dry/pink. Patient states feeling better. Patient states symptoms have improved. 10:00 GI: Bowel sounds present X 4 quads. Abd is soft. db Vital Signs: 08:14 BP 143 / 99; Pulse 83; Resp 16 S; Pulse Ox 100% on R/A; Weight 95.25 kg (M); Height 4 kc6 ft. 11 in. (R); 09:32 BP 130 / 95; Pulse 71; Resp 16 S; Pulse Ox 100% on R/A; kc6 08:14 Body Mass Index 42.41 (95.25 kg, 149.86 cm) [place] ED Course: 08:01 Patient arrived in ED. im 08:03 Brad Rabago MD is Attending Physician. rn 08:15 Triage completed. [place] 08:15 Arm band placed on. [place] 08:16 Patient has correct armband on for positive identification. Bed in low position. Call [place] light in reach. Side rails up X 1. Adult w/ patient. Client placed on continuous cardiac and pulse oximetry monitoring. NIBP monitoring applied. 08:17 Katya Rivera, RN is Primary Nurse. db 08:26 Initial lab(s) drawn, by me, sent to lab. Urine collected: clean catch specimen, clear. db Inserted saline lock: 20 gauge in right antecubital area, using aseptic technique. Blood collected. 08:49 US Abdomen Limited In Process Unspecified. EDMS 09:16 CT Abd/Pelvis - IV Contrast Only In Process Unspecified. EDMS 09:41 Elvin Marquez MD is Referral Physician. rn 10:00 Provided Education on: DISCHARGE. Warm blanket given. db 10:00 No provider procedures requiring assistance completed. IV discontinued, intact, db bleeding controlled, No redness/swelling at site. Administered Medications: 08:55 Drug: Ondansetron IVP 4 mg IVP once; over 2 minutes Route: IVP; Site: right antecubital;kc6 09:32 Follow up: Response: No adverse reaction; Nausea unchanged kc6 08:55 Drug: GI Cocktail without - (Maalox PO 30 ml, Lidocaine Mucous Membrane 2 % 15 kc6 ml) PO once Route: PO; 09:32 Follow up: Response: No adverse reaction kc6 Medication: 10:00 VIS not applicable for this client. db Outcome: 09:41 Discharge ordered by . rn 10:00 Discharged to home ambulatory, with family, db 10:00 Condition: stable 10:00 Discharge instructions given to patient, Instructed on discharge instructions, follow up and referral plans. Prescriptions given X 2, 10:03 Patient left the ED. db Signatures: Dispatcher [employer] Brad Brizuela MD MD rn Campbell, Kaitlyn, RN RN kc6 Katya Rivera RN RN db Diamond Koch
--- NOTE | 2023-06-29 09:42 | EDPHYS ---
Physician Documentation [facility] Name: Leora Morin Age: 28 yrs Sex: Female : 1995 Arrival Date: 06/29/2023 Time: 07:59 Bed 5 Private MD: ED Physician Brad Rabago HPI: 06/28 09:02 This 28 yrs old Female presents to ER via Ambulatory with complaints of rn Abdominal Pain. 09:02 The patient presents with abdominal pain in the epigastric area, in the upper abdomen. rn Onset: The symptoms/episode began/occurred 1 week(s) ago. The symptoms do not radiate. Associated signs and symptoms: Pertinent positives: diarrhea, nausea, Pertinent negatives: fever. The symptoms are described as achy, crampy. Modifying factors: The symptoms are alleviated by nothing, the symptoms are aggravated by nothing. Severity of pain: At its worst the pain was moderate in the emergency department the pain has improved. The patient has experienced a previous episode. Patient reports 1 week of upper abdominal pain associated with nausea, also has mild diarrhea. Nonbloody stool. No fever or chills. No trauma. Patient states has a history of GERD and feels similar.. 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 - Infectious Disease History:: Denies. - Social history:: Smoking status: Patient denies any tobacco usage or history of. - Family history:: not pertinent. - Hospitalizations: : No recent hospitalization is reported. ROS: 09:02 Constitutional: Negative for fever, chills, and weight loss, Cardiovascular: Negative rn for chest pain, palpitations, and edema, Respiratory: Negative for shortness of breath, cough, wheezing, and pleuritic chest pain, Abdomen/GI: Positive for abdominal pain and nausea. Positive for diarrhea MS/Extremity: Negative for injury and deformity, Skin: Negative for injury, rash, and discoloration, Neuro: Negative for headache, weakness, numbness, tingling, and seizure, Exam: 09:02 Constitutional: This is a well developed, well nourished patient who is awake, alert, rn and in no acute distress. Head/Face: Normocephalic, atraumatic. Cardiovascular: Regular rate and rhythm. No pulse deficits. Respiratory: No increased work of breathing, no retractions or nasal flaring. Abdomen/GI: Soft, mild epigastric and left upper quadrant tenderness. No rebound. No masses. Negative [place]. Vital Signs: 08:14 BP 143 / 99; Pulse 83; Resp 16 S; Pulse Ox 100% on R/A; Weight 95.25 kg (M); Height 4 kc6 ft. 11 in. (R); 09:32 BP 130 / 95; Pulse 71; Resp 16 S; Pulse Ox 100% on R/A; 6 08:14 Body Mass Index 42.41 (95.25 kg, 149.86 cm) [facility] MDM: 08:03 Patient medically screened. rn 09:38 Differential diagnosis: appendicitis, bowel obstruction, cholecystitis, Cholelithiasis, rn diverticulitis, gastritis, gastroesophageal reflux disease, non-specific abd pain, pancreatitis, Peptic Ulcer Disease, Perf. Duodenal Ulcer, Perf. Gastric Ulcer, urinary tract infection. Data reviewed: vital signs, nurses notes, lab test result(s), radiologic studies, CT scan, ultrasound, and as a result, I will discharge patient. Counseling: I had a detailed discussion with the patient and/or guardian regarding the historical points, exam findings, and any diagnostic results supporting the discharge/admit diagnosis, lab results, radiology results, the need for outpatient follow up, to return to the emergency department if symptoms worsen or persist or if there are any questions or concerns that arise at home. Response to treatment: the patient's symptoms have markedly improved after treatment, and as a result, I will discharge patient. Special discussion: Based on the patient's Hx, exam, and Dx evaluation, there is no indication for emergent surgery or inpatient Tx. It is understood by the patient/guardian that if the Sx's persist or worsen they need to return immediately for re-evaluation. I discussed with the patient/guardian in detail that at this point there is no indication for admission to the hospital. It is understood, however, that if the symptoms persist or worsen the patient needs to return immediately for re-evaluation. Based on the history and exam findings, there is no indication for further emergent testing or inpatient evaluation. I discussed with the patient/guardian the need to see the lumber marker for further evaluation of the symptoms. I discussed with the patient/guardian the need to see the primary care provider for further evaluation of the symptoms. ED course: Patient improved with GI cocktail and nausea medication. CT abdomen pelvis and ultrasound negative for acute findings. Urine is dirty but not a clean-catch, evident by numerous squamous cells. Patient resting comfortably. No vomiting here. Will discharge home with Protonix and as needed Zofran. Return precautions given and understood. I have personally reviewed all of the results, including but not limited to blood tests and imaging deemed necessary to safely discharge this patient at this time. All results given to and printed out for patient. I personally went over all the results with the patient and answered all questions. Patient will follow-up with PCP and or specialist as discussed. Return precautions given and understood.. 06/28 08:16 Order name: CBC with Diff; Complete Time: 09:10 rn 06/28 08:16 Order name: CMP; Complete Time: 09:10 rn 06/28 08:16 Order name: Lipase; Complete Time: 09: rn 06/28 08:16 Order name: Test, Urine; Complete Time: 09:10 rn 06/28 08:16 Order name: Urinalysis w/ reflexes; Complete Time: 09:10 rn 06/28 08:16 Order name: US Abdomen Limited; Complete Time: 09:30 rn 06/28 08:21 Order name: CT Abd/Pelvis - IV Contrast Only; Complete Time: 09:30 rn 06/28 08:16 Order name: IV Saline Lock; Complete Time: 08:38 rn 06/28 08:16 Order name: Labs collected and sent; Complete Time: 08:38 rn Administered Medications: 08:55 Drug: Ondansetron IVP 4 mg IVP once; over 2 minutes Route: IVP; Site: right antecubital;kc6 09:32 Follow up: Response: No adverse reaction; Nausea unchanged kc6 08:55 Drug: GI Cocktail without - (Maalox PO 30 ml, Lidocaine Mucous Membrane 2 % 15 kc6 ml) PO once Route: PO; 09:32 Follow up: Response: No adverse reaction kc6 Disposition Summary: 06/29/23 09:41 Discharge Ordered Notes: Location: Home rn Problem: new rn Symptoms: have improved rn Condition: Stable rn Diagnosis - Upper abdominal pain, unspecified rn Followup: rn - With: Elvin Marquez MD - When: As needed - Reason: Recheck today's complaints, Re-evaluation by your physician Discharge Instructions: - Discharge Summary Sheet rn - Abdominal Pain, Adult rn - Gastroesophageal Reflux Disease, Adult rn Forms: - Medication Reconciliation Form rn - Antibiotic winter intern - Prescription Opioid Use rn - Patient Portal Instructions rn - Leadership Thank You Letter rn Prescriptions: - ondansetron 4 mg Oral Tablet,disintegrating - take 1 tablet ORAL route every 8-10 hours As needed; 12 tablet; Refills: 0, rn Product Selection Permitted - Protonix 40 mg Oral Tablet - take 1 tablet ORAL route once daily; 30 tablet; Refills: 0, Product Selection rn Permitted Signatures: Dispatcher [employer] Brad Brizuela MD MD rn Campbell, Kaitlyn RN RN kc6 Corrections: (The following items were deleted from the chart) 09:04 09:02 Patient reports 1 week of upper abdominal pain associated with nausea, also has rn mild diarrhea. Nonbloody stool. No fever or chills. No trauma.. rn
[2023-06-29 10:28] VITALS: BP 130/95; O2SAT 100
== END 2023-06-29 10:03 | disposition home or self-care (01) ==
LOC: ER 07:59
DX: R10.13 Epigastric pain (principal)
CPT/HCPCS: 85025; 81001; 36415; 81025; 83690; 80053; 74177; 76705; 96374; 99284; Q9967; J2405